=== PATIENT | female | born 1970 | race American Indian/Alaskan Native ===

== ENCOUNTER 2017-02-03 16:20 | Emergency (ER) | payer SELFPAY ==
[2017-02-03 17:39] LABS: Bilirubin,Urine NEG (Negative); Blood,Urine MOD (Negative); Ketones,Urine TR mg/dL (Negative); Leukocyte Esterase,Urine MOD (Negative); Mucus,Urine FEW /HPF; Nitrite,Urine NEG (Negative); Protein,Urine <15 mg/dL mg/dL (Negative); Urobilinogen,Urine < 2.0 mg/dL (<2.0)
--- NOTE | 2017-02-03 20:22 | Emergency Department Report ---
ED Female HPI - General Chief complaint: Urogenital-Female Stated complaint: POSS UTI Source: patient Mode of arrival: Ambulatory Limitations: No Limitations - History of Present Illness Initial comments: 6-year-old female comes in with complaint of urinary urgency with urination and urinary frequency and dysuria since Thursday. Patient reports that she has noticed some blood in the urine. She denies any fever or chills she had nausea a few days ago but none now. Taken no pain medication she has been drinking cranberry and water and taking egcy-pyo-dgyidbj cranberry pills she does not have a primary care provider. MD Complaint: dysuria, pelvic pain -: days(s) (3) Location: suprapubic Radiation: LLQ Severity scale (0 -10): 0 Consistency: intermittent Improves with: none Worsens with: urination Are you Now?: No Last Menstrual Period: 01/09/17 EDC: 10/16/17 Associated Symptoms: denies other symptoms - Related Data Sexually active: Yes Home Medications Medication Instructions Recorded Confirmed Last Taken ALBUTEROL Inhaler [Proair] 2 puff IH QID PRN 02/03/17 02/03/17 Unknown Previous Rx's Medication Instructions Recorded Last Taken Type Naproxen [Naprosyn TAB] 500 mg PO BID #20 tablet 02/03/17 Unknown Rx Nitrofurantoin [place]/M-Cryst 100 mg PO Q12HR #20 capsule 02/03/17 Unknown Rx [Macrobid CAP] Allergies Allergy/AdvReac Type Severity Reaction Status Date / Time bee venom (honey bee) Allergy Swelling Verified 02/03/17 16:54 ED Review of Systems ROS: Stated complaint: POSS UTI Other details as noted in HPI ED Past Medical Hx - Past Medical History Hx GERD: Yes Hx Psychiatric Treatment: Yes (ANXIETY) Hx Asthma: Yes - Surgical History Hx Breast Surgery: Yes (CYST REMOVED LEFT BREAST) Additional Surgical History: ECTOPIC X 2 ; "ONE TUBE TAKEN OUT" - Social History Smoking Status: Current Every Day Smoker Substance Use Type: None - Medications Home Medications: Home Medications Medication Instructions Recorded Confirmed Last Taken Type ALBUTEROL Inhaler [Proair] 2 puff IH QID PRN 02/03/17 02/03/17 Unknown History Naproxen [Naprosyn TAB] 500 mg PO BID #20 tablet 02/03/17 Unknown Rx Nitrofurantoin [place]/M-Cryst 100 mg PO Q12HR #20 capsule 02/03/17 Unknown Rx [Macrobid CAP] ED Physical Exam - General Limitations: No Limitations General appearance: alert, in no apparent distress - Head Head exam: Present: atraumatic, normocephalic - Eye Eye exam: Present: normal appearance, EOMI - GI/Abdominal GI/Abdominal exam: Present: soft, tenderness (right lower suprapubic tenderness and suprapubic tenderness), normal bowel sounds. Absent: distended - Extremities Exam Extremities exam: Present: normal inspection - Back Exam Back exam: Present: CVA tenderness (R) - Neurological Exam Neurological exam: Present: alert, oriented X3, normal gait - Psychiatric Psychiatric exam: Present: normal affect, normal mood - Skin Skin exam: Present: warm, dry, intact ED Course Vital Signs 02/03/17 16:58 Temperature 98.4 F Pulse Rate 91 H Respiratory 17 Rate Blood Pressure 102/64 O2 Sat by Pulse 100 Oximetry ED Medical Decision Making - Medical Decision Making Patient's been evaluated by this provider in fast track. Discussed with patient that we would discharge her on antibiotics. Discussed with patient that I will discharge her on pain medication. Patient needs to follow up with her primary care provider if symptoms persist but does not improve. Patient declined pain medicine to take now. She reports that she has not eaten all day. Critical care attestation.: If time is entered above; I have spent that time in minutes in the direct care of this critically ill patient, excluding procedure time. ED Disposition Clinical Impression: UTI (urinary tract infection) Qualifiers: Urinary tract infection type: site unspecified Hematuria presence: with hematuria Qualified Code(s): N39.0 - Urinary tract infection, site not specified ; R31.9 - Hematuria, unspecified Disposition: DISCHARGED TO HOME OR SELFCARE Is pt being admited?: No Does the pt Need Aspirin: No Condition: Stable Instructions: Urinary Tract Infection in Women (ED) Additional Instructions: Take antibiotics as prescribed. Use pain medication as prescribed when necessary. Follow-up if symptoms persist but does not improve. Prescriptions: Naproxen [Naprosyn TAB] 500 mg PO BID #20 tablet Nitrofurantoin [place]/M-Cryst [Macrobid CAP] 100 mg PO Q12HR #20 capsule Referrals: PRIMARY CARE, [Primary Care Provider] - 3-5 Days [facility] [Outside] - 3-5 Days Forms: Work/School Release Form(ED)
[2017-02-03 21:07] VITALS: BP 135/78
== END 2017-02-03 21:06 | disposition home or self-care (01) ==
LOC: ED 16:20
DX: N39.0 Urinary tract infection, site not specified (principal); R31.9 Hematuria, unspecified; K21.9 Gastro-esophageal reflux disease without esophagitis; F41.9 Anxiety disorder, unspecified; J45.909 Unspecified asthma, uncomplicated; F17.200 Nicotine dependence, unspecified, uncomplicated; Z91.030 Bee allergy status
CPT/HCPCS: 81001; 81025; 99282

== ENCOUNTER 2017-12-03 04:13 | Emergency (ER) | payer SELFPAY ==
[2017-12-03 04:46] VITALS: BP 110/38
[2017-12-03 06:13] LABS: Basophils % (Auto) 0.4 % (0.0-1.8); Eosinophils # (Auto) 0.1 K/mm3 (0.0-0.4); Eosinophils % (Auto) 1.5 % (0.0-4.3); Lymphocytes # (Auto) 2.3 K/mm3 (1.2-5.4); Lymphocytes % (Auto) 33.7 % (13.4-35.0); Mean Corpuscular HGB Conc 33 % (30-34); Mean Corpuscular Hemoglobin 32 pg (28-32); Mean Corpuscular Volume 97 fl (79-97); Monocytes # (Auto) 0.5 K/mm3 (0.0-0.8); Monocytes % (Auto) 7.8 % (0.0-7.3); Platelet Count 163 K/mm3 (140-440); Red Blood Count 4.02 M/mm3 (3.65-5.03); Red Cell Distribution Width 12.5 % (13.2-15.2)
[2017-12-03 06:25] LABS: Alanine Aminotransferase 6 units/L (7-56); Albumin 3.9 g/dL (3.9-5); BUN/Creatinine Ratio 12; Blood Urea Nitrogen 12 mg/dL (7-17); Calcium 8.8 mg/dL (8.4-10.2); Hemolysis Index 9; Lipase 21 units/L (13-60)
[2017-12-03 07:47] LABS: Bilirubin,Urine NEG (Negative); Blood,Urine MOD (Negative); Color,Urine Yellow (Yellow); Mucus,Urine 1+ /HPF; Nitrite,Urine NEG (Negative); Protein,Urine <15 mg/dL mg/dL (Negative); Urobilinogen,Urine < 2.0 mg/dL (<2.0)
== END 2017-12-03 11:26 ==
LOC: ED 04:13
DX: R10.9 Unspecified abdominal pain (principal); Z53.21 Procedure and treatment not carried out due to patient leaving prior to being seen by health care provider
CPT/HCPCS: 36415; 80053; 81001; 83690; 84703; 85025

== ENCOUNTER 2018-05-14 22:34 | Emergency (ER) | payer SELFPAY ==
[2018-05-14] MEDS ORDERED: ASPIRIN PO ONE (23:29)
[2018-05-15 00:29] LABS: Basophils % (Auto) 0.3 % (0.0-1.8); Eosinophils # (Auto) 0.2 K/mm3 (0.0-0.4); Eosinophils % (Auto) 1.7 % (0.0-4.3); Hematocrit 39.4 % (30.3-42.9); Hemoglobin 13.6 gm/dl (10.1-14.3); Lymphocytes # (Auto) 3.2 K/mm3 (1.2-5.4); Lymphocytes % (Auto) 31.8 % (13.4-35.0); Mean Corpuscular HGB Conc 35 % (30-34); Mean Corpuscular Hemoglobin 34 pg (28-32); Mean Corpuscular Volume 97 fl (79-97); Monocytes # (Auto) 0.7 K/mm3 (0.0-0.8); Monocytes % (Auto) 7.3 % (0.0-7.3); Platelet Count 201 K/mm3 (140-440); Red Blood Count 4.07 M/mm3 (3.65-5.03); Red Cell Distribution Width 13.2 % (13.2-15.2)
[2018-05-15 00:46] LABS: BUN/Creatinine Ratio 16; Blood Urea Nitrogen 16 mg/dL (7-17); Calcium 9.5 mg/dL (8.4-10.2); Hemolysis Index 2
--- NOTE | 2018-05-15 06:24 | Emergency Department Report ---
ED Chest Pain HPI - General Chief Complaint: Chest Pain Stated Complaint: EARACHE, HEADACHE Source: patient Mode of arrival: Ambulatory Limitations: No Limitations - Related Data Home Medications Medication Instructions Recorded Confirmed Last Taken ALBUTEROL Inhaler [Proair] 2 puff IH QID PRN 02/03/17 02/03/17 Unknown Previous Rx's Medication Instructions Recorded Last Taken Type Naproxen [Naprosyn TAB] 500 mg PO BID #20 tablet 02/03/17 Unknown Rx Nitrofurantoin [place]/M-Cryst 100 mg PO Q12HR #20 capsule 02/03/17 Unknown Rx [Macrobid CAP] Allergies Allergy/AdvReac Type Severity Reaction Status Date / Time venom-honey bee Allergy Swelling Verified 02/03/17 16:54 [bee venom (honey bee)] ED Review of Systems ROS: Stated complaint: EARACHE, HEADACHE Other details as noted in HPI ED Past Medical Hx - Past Medical History Hx GERD: Yes Hx Psychiatric Treatment: Yes (ANXIETY) Hx Asthma: Yes - Surgical History Hx Breast Surgery: Yes (CYST REMOVED LEFT BREAST) Additional Surgical History: ECTOPIC X 2 ; "ONE TUBE TAKEN OUT" - Social History Smoking Status: Current Every Day Smoker Substance Use Type: None - Medications Home Medications: Home Medications Medication Instructions Recorded Confirmed Last Taken Type ALBUTEROL Inhaler [Proair] 2 puff IH QID PRN 02/03/17 02/03/17 Unknown History Naproxen [Naprosyn TAB] 500 mg PO BID #20 tablet 02/03/17 Unknown Rx Nitrofurantoin [place]/M-Cryst 100 mg PO Q12HR #20 capsule 02/03/17 Unknown Rx [Macrobid CAP] ED Physical Exam - General Limitations: No Limitations ED Course Vital Signs 05/14/18 23:18 Temperature 98.8 F Pulse Rate 74 Respiratory 16 Rate Blood Pressure 109/55 O2 Sat by Pulse 98 Oximetry ED Medical Decision Making - Lab Data Result diagrams: 05/15/18 00:03 05/15/18 00:03 Critical care attestation.: If time is entered above; I have spent that time in minutes in the direct care of this critically ill patient, excluding procedure time. ED Disposition Condition: Stable Referrals: PRIMARY CARE, [Primary Care Provider] - 3-5 Days
[2018-05-15] MEDS ORDERED: ASPIRIN ONE (06:34)
--- NOTE | 2018-05-15 06:40 | Emergency Department Report ---
Blank Doc - Documentation Documentation: This is a 47-year-old patient presented to the emergency room reporting that she is having chest pain with radiation of pain down to her arm that started a week ago. She is also complaining of headache. No medication taken for pain. She is here to be evaluated. She denies any medical problems. Patient said at first she thought it was gas and she drank some Sprite and got some relief but she said it still persists . She denies any shortness of breath. Denies any cough or fever. Denies any history of blood clots or any recent long distance travel by airplane or car. Denies any recent convalescent. Denies any blurred vision. Headache is located left side of head. Denies any dizziness, nausea or vomiting. PE: 47-year-old female patient well-nourished well-developed and nontoxic in appearance. Mini-neurological exam-she is at 15, alert and oriented 3. No facial droop. Speech is clear and fluid. Normal gait. CV: S1, S2. Regular rate rhythm negative murmur Respiratory: Clear to auscultate bilaterally, no adventitious sound. Extremity: No clubbing, cyanosis or edema. A/P Chest pain with radiation of pain to upper extremity, headache. EKG normal sinus rhythm at 61. Patient had EKG now and at 10:30 AM. Troponin normal, patient's troponin stat and 10:30 AM. CBC and chemistries stable. VSS ,afeb Patient's of aspirin, O2 and placed on traffic monitor specialist. I spoke with Dr. de luna who is the attending physician and he wants patient to be in the main side. I discuss this with patient and she voiced understanding. Patient taken to the main side to be evaluated.
--- NOTE | 2018-05-15 07:47 | Emergency Department Report ---
ED Chest Pain HPI - General Chief Complaint: Chest Pain Stated Complaint: EARACHE, HEADACHE Time Seen by Provider: 05/15/18 06:08 Source: patient Mode of arrival: Ambulatory Limitations: No Limitations - History of Present Illness Initial Comments: 47-year-old female presents to the emergency department with a complaint of a one-week history of some intermittent left-sided chest pain, left -sided back pain and left-sided headache. Currently the patient has no complaints as the symptoms have resolved but she does say that they come and go. The patient is a tobacco smoker but denies any illicit drug use. She otherwise denies any past medical history. She moved to [place] from [place] about one year ago and does not yet have a primary care physician here. She has not taken anything for her symptoms prior to presentation. She says that the chest and back pain are reproducible and/or worsen with certain movements of her left arm and torso. Earlier, the patient was having the back pain, and she thought she had some gas. She drank some Sprite, burped, and 20 minutes later the symptoms resolved. She denies any family history of early cardiac disease or events. With the headache, she denies any vision change, slurred speech or any neurological deficits. - Related Data Home Medications Medication Instructions Recorded Confirmed Last Taken ALBUTEROL Inhaler [Proair] 2 puff IH QID PRN 02/03/17 02/03/17 Unknown Previous Rx's Medication Instructions Recorded Last Taken Type Naproxen [Naprosyn TAB] 500 mg PO BID #20 tablet 02/03/17 Unknown Rx Nitrofurantoin [place]/M-Cryst 100 mg PO Q12HR #20 capsule 02/03/17 Unknown Rx [Macrobid CAP] Allergies Allergy/AdvReac Type Severity Reaction Status Date / Time venom-honey bee Allergy Swelling Verified 02/03/17 16:54 [bee venom (honey bee)] Heart Score - HEART Score History: Slightly suspicious EKG: Normal Age: 45-65 Risk factors: 1-2 risk factors Troponin: < normal limit HEART Score: 2 ED Review of Systems ROS: Stated complaint: EARACHE, HEADACHE Other details as noted in HPI Comment: All other systems reviewed and negative Constitutional: denies: chills, fever Eyes: denies: eye pain, eye discharge, vision change ENT: denies: ear pain, throat pain Respiratory: denies: cough, shortness of breath, wheezing Cardiovascular: chest pain. denies: palpitations Gastrointestinal: denies: abdominal pain, nausea, diarrhea Genitourinary: denies: urgency, dysuria, discharge Musculoskeletal: back pain. denies: arthralgia Skin: denies: rash, lesions Neurological: headache. denies: numbness ED Past Medical Hx - Past Medical History Hx GERD: Yes Hx Psychiatric Treatment: Yes (ANXIETY) Hx Asthma: Yes - Surgical History Hx Breast Surgery: Yes (CYST REMOVED LEFT BREAST) Additional Surgical History: ECTOPIC X 2 ; "ONE TUBE TAKEN OUT" - Social History Smoking Status: Current Every Day Smoker Substance Use Type: None - Medications Home Medications: Home Medications Medication Instructions Recorded Confirmed Last Taken Type ALBUTEROL Inhaler [Proair] 2 puff IH QID PRN 02/03/17 02/03/17 Unknown History Naproxen [Naprosyn TAB] 500 mg PO BID #20 tablet 02/03/17 Unknown Rx Nitrofurantoin [place]/M-Cryst 100 mg PO Q12HR #20 capsule 02/03/17 Unknown Rx [Macrobid CAP] ED Physical Exam - General Limitations: No Limitations ED Course Vital Signs 05/14/18 05/15/18 05/15/18 23:18 06:17 06:58 Temperature 98.8 F 97.6 F Pulse Rate 74 62 Respiratory 16 16 Rate Blood Pressure 109/55 Blood Pressure 73/36 [Right] O2 Sat by Pulse 98 95 98 Oximetry 05/15/18 05/15/18 07:11 07:24 Temperature Pulse Rate 56 L 56 L Respiratory Rate Blood Pressure Blood Pressure 70/39 [Right] O2 Sat by Pulse Oximetry NAVID score - Navid Score Age > 65: (0) No Aspirin use within the Past 7 Days: (0) No 3 or more CAD Risk Factors: (0) No 2 or more Angina events in past 24 hrs: (1) Yes (If considered angina) Known CAD with more than 50% Stenosis: (0) No Elevated Cardiac Markers: (0) No ST Deviation Greater than 0.5mm: (0) No NAVID Score: 1 ED Medical Decision Making - Lab Data Result diagrams: 05/15/18 00:03 05/15/18 00:03 - EKG Data -: EKG Interpreted by Me EKG shows normal: sinus rhythm, axis, intervals, QRS complexes, ST-T waves Rate: bradycardia (56 bpm) - EKG Data When compared to previous EKG there are: previous EKG unavailable Interpretation: normal EKG Critical care attestation.: If time is entered above; I have spent that time in minutes in the direct care of this critically ill patient, excluding procedure time. ED Disposition Clinical Impression: Intermittent chest pain Episodic headache Qualifiers: Headache type: tension-type Intractability: not intractable Qualified Code(s): G44.219 - Episodic tension-type headache, not intractable Disposition: DC-01 TO HOME OR SELFCARE Is pt being admited?: No Condition: Stable Instructions: Chest Pain (ED), Costochondritis (ED), Acute Headache (ED) Additional Instructions: Please follow up with a primary care physician in the next few days. I have given her a referral for a local gas controller, Dr. Chavez, to follow up regarding your intermittent chest pains. Return to the emergency department with any worsening of your symptoms of any acute distress. Referrals: PRIMARY MD FRANK [Primary Care Provider] - 3-5 Days JOHN GRIJALVA MD [Staff Physician] - 3-5 Days CHRISTIANO CHAVEZ MD [Staff Physician] - 3-5 Days [facility] [Outside] - 3-5 Days Time of Disposition: 08:20
--- NOTE | 2018-05-15 07:59 | XRay Report ---
FINAL REPORT EXAM: XR CHEST 1V AP HISTORY: CP TECHNIQUE: AP portable view(s) of the chest obtained. PRIORS: None. FINDINGS: No mediastinal shift. Cardiac silhouette is not enlarged. No pneumothorax, effusion, or focal pulmonary opacity identified. No acute skeletal findings. IMPRESSION: No acute pulmonary finding identified.
[2018-05-15] MEDS ORDERED: NACL 0.9% 1000 ML 1,000 ML IV ONE ×2 (09:21→11:00)
[2018-05-15 12:13] VITALS: BP 94/54
== END 2018-05-15 13:04 | disposition home or self-care (01) ==
LOC: ED 22:34
DX: R07.89 Other chest pain (principal); G44.219 Episodic tension-type headache, not intractable; K21.9 Gastro-esophageal reflux disease without esophagitis; J45.909 Unspecified asthma, uncomplicated; F17.200 Nicotine dependence, unspecified, uncomplicated; Z91.030 Bee allergy status
CPT/HCPCS: 36415; 71045; 80048; 84484; 84703; 85025; 93005; 93010; 99284; J7030

== ENCOUNTER 2018-12-31 23:04 | Emergency (ER) | payer BC ==
[2018-12-31] MEDS ORDERED: TYLENOL PO ONE (23:37)
[2018-12-31] MEDS ORDERED: TYLENOL ONE (23:38)
[2019-01-01] MEDS ORDERED: IBUPROFEN PO ONE (05:02)
--- NOTE | 2019-01-01 05:05 | Emergency Department Report ---
ED Extremity Problem HPI - General Chief complaint: Extremity Injury, Lower Stated complaint: L LEG EDEMA Time Seen by Provider: 01/01/19 05:00 Source: patient Mode of arrival: Ambulatory Limitations: No Limitations - History of Present Illness Initial comments: 48 -year-old -[place] female presents to the emergency room for left knee swelling 1-1/2 weeks. Patient states that her job entails her walking up and down steps. Patient also endorsed that she had slipped on her carpet after it was being cleaned. Patient denies any fever or chills. Patient reports that the pain and swelling started in the back of her knee and now it has gone to her knee and lower leg swelling. Patient has a past medical history of anxiety. MD Complaint: extremity swelling, joint swelling, joint paint -: week(s) (1.5) Location: left, knee History of Same: No -: Yes arthralgia Severity scale (0 -10): 10 Quality: aching, sharp Consistency: intermittent Improves with: medication (Tylenol that was given here in triage) Worsens with: weight bearing, other (bending) - Related Data Home Medications Medication Instructions Recorded Confirmed Last Taken ALBUTEROL Inhaler (OR & NICU) 2 puff IH QID PRN 02/03/17 02/03/17 Unknown [Proair] Previous Rx's Medication Instructions Recorded Last Taken Type Naproxen [Naprosyn TAB] 500 mg PO BID #20 tablet 02/03/17 Unknown Rx Nitrofurantoin [place]/M-Cryst 100 mg PO Q12HR #20 capsule 02/03/17 Unknown Rx [Macrobid CAP] Ibuprofen [Motrin 800 MG tab] 800 mg PO Q8HR PRN #15 tablet 01/01/19 Unknown Rx Allergies Allergy/AdvReac Type Severity Reaction Status Date / Time venom-honey bee Allergy Swelling Verified 02/03/17 16:54 [bee venom (honey bee)] ED Review of Systems ROS: Stated complaint: L LEG EDEMA Other details as noted in HPI Comment: All other systems reviewed and negative Musculoskeletal: joint swelling (left knee), arthralgia (left knee) ED Past Medical Hx - Past Medical History Previous Medical History?: Yes Hx GERD: Yes Hx Psychiatric Treatment: Yes (ANXIETY) Hx Asthma: Yes - Surgical History Past Surgical History?: Yes Hx Breast Surgery: Yes (CYST REMOVED LEFT BREAST) Additional Surgical History: ECTOPIC X 2 ; "ONE TUBE TAKEN OUT" - Social History Smoking Status: Current Every Day Smoker Substance Use Type: None - Medications Home Medications: Home Medications Medication Instructions Recorded Confirmed Last Taken Type ALBUTEROL Inhaler (OR & NICU) 2 puff IH QID PRN 02/03/17 02/03/17 Unknown History [Proair] Naproxen [Naprosyn TAB] 500 mg PO BID #20 tablet 02/03/17 Unknown Rx Nitrofurantoin [place]/M-Cryst 100 mg PO Q12HR #20 capsule 02/03/17 Unknown Rx [Macrobid CAP] Ibuprofen [Motrin 800 MG tab] 800 mg PO Q8HR PRN #15 tablet 01/01/19 Unknown Rx ED Physical Exam - General Limitations: No Limitations General appearance: alert, in no apparent distress - Head Head exam: Present: atraumatic, normocephalic - Eye Eye exam: Present: EOMI - ENT ENT exam: Present: mucous membranes moist - Neck Neck exam: Present: normal inspection - Respiratory Respiratory exam: Present: normal lung sounds bilaterally. Absent: respiratory distress - Cardiovascular Cardiovascular Exam: Present: regular rate, normal rhythm. Absent: systolic murmur, diastolic murmur, rubs, gallop ED Course Vital Signs 12/31/18 12/31/18 12/31/18 23:11 23:30 23:38 Temperature 98.2 F 98.2 F Pulse Rate 73 73 Respiratory 18 18 18 Rate Blood Pressure 113/46 113/46 O2 Sat by Pulse 98 98 Oximetry ED Medical Decision Making - Radiology Data Radiology results: report reviewed Patient: NAYANA SHIPMAN MR#: [id number] : 1970 Acct:[id number] Age/Sex: 48 / F ADM Date: 12/31/18 Loc: ED Attending Dr: Ordering Physician: LADAN HERNANDEZ Date of Service: 01/01/19 Procedure(s): XR knee 3V LT Accession Number(s): [id number] cc: LADAN HERNANDEZ Fluoro Time In Minutes: PROCEDURE: XR KNEE 3V LT TECHNIQUE: Left knee radiograph, 3 views HISTORY: knee pain and swelling COMPARISONS: None . FINDINGS: Fracture (s) and/or Dislocation(s): None . Joint space(s): Normal . Soft tissues: There is a very small suprapatellar joint effusion. . Bone mineralization: Normal . Foreign bodies: None . IMPRESSION: Small suprapatellar joint effusion. No evidence of fracture. . This document is electronically signed by Yajaira Mackey MD., January 01 2019 05:26:01 AM ET Transcribed By: RB Dictated By: YAJAIRA MACKEY MD Electronically Authenticated By: YAJAIRA MACKEY MD Signed Date/Time: 01/01/19554 DD/ 0 TD/TT: 01/01/19520 - Medical Decision Making Patient has been evaluated by this provider in fast track. Patient was given Tylenol in triage which she reports helped some and patient was given ibuprofen and a ACC which she reports has helped. Discussed patient x-ray of her left knee shows a very small suprapatellar effusion Discussed patient to elevate ice and use compression and to rest her knee. Patient verbalized understanding Critical care attestation.: If time is entered above; I have spent that time in minutes in the direct care of this critically ill patient, excluding procedure time. ED Disposition Clinical Impression: Knee effusion, left Disposition: DC-01 TO HOME OR SELFCARE Is pt being admited?: No Does the pt Need Aspirin: No Condition: Stable Instructions: Knee Effusion (ED) Additional Instructions: Please take pain medication as needed. Please wrap knee as shown. Please elevate and apply ice if it gets worse please follow up with orthopedic I have listed their information below for your convenience. Prescriptions: Ibuprofen [Motrin 800 MG tab] 800 mg PO Q8HR PRN #15 tablet PRN Reason: Pain , Severe (7-10) Referrals: MAKSIM CALLOWAY MD [Staff Physician] - 3-5 Days YAJAIRA NUÑEZ MD [Staff Physician] - 3-5 Days Forms: Work/School Release Form(ED)
--- NOTE | 2019-01-01 05:55 | XRay Report ---
PROCEDURE: XR KNEE 3V LT TECHNIQUE: Left knee radiograph, 3 views HISTORY: knee pain and swelling COMPARISONS: None . FINDINGS: Fracture (s) and/or Dislocation(s): None . Joint space(s): Normal . Soft tissues: There is a very small suprapatellar joint effusion. . Bone mineralization: Normal . Foreign bodies: None . IMPRESSION: Small suprapatellar joint effusion. No evidence of fracture. . This document is electronically signed by Donis Mackey MD., January 01 2019 05:26:01 AM ET
[2019-01-01 06:58] VITALS: BP 105/47
== END 2019-01-01 06:58 | disposition home or self-care (01) ==
LOC: ED 23:04
DX: M25.462 Effusion, left knee (principal); K21.9 Gastro-esophageal reflux disease without esophagitis; F41.9 Anxiety disorder, unspecified; J45.909 Unspecified asthma, uncomplicated; F17.200 Nicotine dependence, unspecified, uncomplicated; Z79.899 Other long term (current) drug therapy; Z91.030 Bee allergy status
CPT/HCPCS: 99283

== ENCOUNTER 2019-01-16 04:19 | Emergency (ER) | payer BC ==
[2019-01-16] MEDS ORDERED: ASPIRIN PO ONE (05:00)
[2019-01-16 05:31] LABS: Basophils % (Auto) 0.4 % (0.0-1.8); Eosinophils # (Auto) 0.1 K/mm3 (0.0-0.4); Eosinophils % (Auto) 1.4 % (0.0-4.3); Hematocrit 38.2 % (30.3-42.9); Hemoglobin 12.8 gm/dl (10.1-14.3); Lymphocytes # (Auto) 2.2 K/mm3 (1.2-5.4); Lymphocytes % (Auto) 29.8 % (13.4-35.0); Mean Corpuscular HGB Conc 34 % (30-34); Mean Corpuscular Volume 98 fl (79-97); Monocytes # (Auto) 0.5 K/mm3 (0.0-0.8); Monocytes % (Auto) 6.8 % (0.0-7.3); Platelet Count 187 K/mm3 (140-440); Red Blood Count 3.91 M/mm3 (3.65-5.03); Red Cell Distribution Width 13.3 % (13.2-15.2)
[2019-01-16 05:53] LABS: BUN/Creatinine Ratio 15; Blood Urea Nitrogen 15 mg/dL (7-17); Hemolysis Index 8
--- NOTE | 2019-01-16 06:32 | Emergency Department Report ---
ED General Adult HPI - General Chief complaint: Chest Pain Stated complaint: NAUSEA/STOMACH PAIN/CP Time Seen by Provider: 01/16/19 06:17 Source: patient Mode of arrival: Ambulatory Limitations: No Limitations - History of Present Illness Initial comments: The patient presents to the emergency department with chief complaint of nausea and weakness for the last week. Patient also complains of having chest pain on the left side since without radiation. Patient describes chest pain as continuous in nature and denies anything making it better or worse. Patient denies a history of diabetes, hyperlipidemia, hypertension. -: Gradual Location: chest Severity scale (0 -10): 7 Quality: dull Consistency: constant Improves with: none Worsens with: none Associated Symptoms: nausea/vomiting Treatments Prior to Arrival: none - Related Data Home Medications Medication Instructions Recorded Confirmed Last Taken ALBUTEROL Inhaler (OR & NICU) 2 puff IH QID PRN 02/03/17 02/03/17 Unknown [Proair] Previous Rx's Medication Instructions Recorded Last Taken Type Naproxen [Naprosyn TAB] 500 mg PO BID #20 tablet 02/03/[address] [facility]/M-Cryst 100 mg PO Q12HR #20 capsule 02/03/17 Unknown Rx [Macrobid CAP] Ibuprofen [Motrin 800 MG tab] 800 mg PO Q8HR PRN #15 tablet 01/01/19 Unknown Rx Ondansetron [Zofran Odt] 4 mg PO Q6HR PRN #20 tab.rapdis 01/16/19 Unknown Rx Promethazine [Phenergan TAB] 25 mg PO Q6HR PRN #20 tab 01/16/19 Unknown Rx Allergies Allergy/AdvReac Type Severity Reaction Status Date / Time venom-honey bee Allergy Swelling Verified 02/03/17 16:54 [bee venom (honey bee)] ED Review of Systems ROS: Stated complaint: NAUSEA/STOMACH PAIN/CP Other details as noted in HPI Comment: All other systems reviewed and negative Constitutional: denies: chills, fever Eyes: denies: eye pain, eye discharge, vision change ENT: denies: ear pain, throat pain Respiratory: denies: cough, shortness of breath, wheezing Cardiovascular: chest pain. denies: palpitations Endocrine: no symptoms reported Gastrointestinal: nausea. denies: abdominal pain, diarrhea Genitourinary: denies: urgency, dysuria, discharge Musculoskeletal: denies: back pain, joint swelling, arthralgia Skin: denies: rash, lesions Neurological: denies: headache, weakness, paresthesias Psychiatric: denies: anxiety, depression Hematological/Lymphatic: denies: easy bleeding, easy bruising ED Past Medical Hx - Past Medical History Hx GERD: Yes Hx Psychiatric Treatment: Yes (ANXIETY) Hx Asthma: Yes - Surgical History Hx Breast Surgery: Yes (CYST REMOVED LEFT BREAST) Additional Surgical History: ECTOPIC X 2 ; "ONE TUBE TAKEN OUT" - Social History Smoking Status: Current Every Day Smoker Substance Use Type: None - Medications Home Medications: Home Medications Medication Instructions Recorded Confirmed Last Taken Type ALBUTEROL Inhaler (OR & NICU) 2 puff IH QID PRN 02/03/17 02/03/17 Unknown History [Proair] Naproxen [Naprosyn TAB] 500 mg PO BID #20 tablet 02/03/[address] [facility]/M-Cryst 100 mg PO Q12HR #20 capsule 02/03/17 Unknown Rx [Macrobid CAP] Ibuprofen [Motrin 800 MG tab] 800 mg PO Q8HR PRN #15 tablet 01/01/19 Unknown Rx Ondansetron [Zofran Odt] 4 mg PO Q6HR PRN #20 tab.rapdis 01/16/19 Unknown Rx Promethazine [Phenergan TAB] 25 mg PO Q6HR PRN #20 tab 01/16/19 Unknown Rx ED Physical Exam - General Limitations: No Limitations General appearance: alert, in no apparent distress - Head Head exam: Present: atraumatic, normocephalic - Eye Eye exam: Present: normal appearance, PERRL, EOMI - ENT ENT exam: Present: mucous membranes dry - Neck Neck exam: Present: normal inspection - Respiratory Respiratory exam: Present: normal lung sounds bilaterally. Absent: respiratory distress, wheezes, rales, rhonchi - Cardiovascular Cardiovascular Exam: Present: regular rate, normal rhythm. Absent: systolic murmur, diastolic murmur, rubs, gallop - GI/Abdominal GI/Abdominal exam: Present: soft, normal bowel sounds. Absent: distended, tenderness - Extremities Exam Extremities exam: Present: normal inspection - Back Exam Back exam: Present: normal inspection - Neurological Exam Neurological exam: Present: alert, oriented X3, CN II-XII intact. Absent: motor sensory deficit - Psychiatric Psychiatric exam: Present: normal affect, normal mood - Skin Skin exam: Present: warm, dry, intact, normal color. Absent: rash ED Course Vital Signs 01/16/19 01/16/19 01/16/19 04:27 04:56 06:47 Temperature 98.1 F 98.1 F Pulse Rate 69 66 112 H Respiratory 18 18 Rate Blood Pressure 90/47 90/50 O2 Sat by Pulse 98 98 Oximetry 01/16/19 01/16/19 01/16/19 07:00 07:15 07:30 Temperature Pulse Rate 62 53 L 55 L Respiratory 13 15 16 Rate Blood Pressure 109/64 102/59 98/58 O2 Sat by Pulse 100 98 Oximetry 01/16/19 01/16/19 01/16/19 07:45 08:00 08:16 Temperature Pulse Rate 53 L 52 L Respiratory 15 12 Rate Blood Pressure 109/64 103/57 98/58 O2 Sat by Pulse 97 99 99 Oximetry 01/16/19 08:46 Temperature Pulse Rate 50 L Respiratory 13 Rate Blood Pressure 98/58 O2 Sat by Pulse 98 Oximetry ED Medical Decision Making - Lab Data Result diagrams: 01/16/19 05:09 01/16/19 05:09 Lab Results 01/16/19 01/16/19 01/16/19 Range/Units 05:09 05:09 05:09 WBC 7.4 (4.5-11.0) K/mm3 RBC 3.91 (3.65-5.03) M/mm3 Hgb 12.8 (10.1-14.3) gm/dl Hct 38.2 (30.3-42.9) % MCV 98 H (79-97) fl MCH 33 H (28-32) pg MCHC 34 (30-34) % RDW 13.3 (13.2-15.2) % Plt Count 187 (140-440) K/mm3 Lymph % (Auto) 29.8 (13.4-35.0) % [place] % (Auto) 6.8 (0.0-7.3) % Eos % (Auto) 1.4 (0.0-4.3) % Baso % (Auto) 0.4 (0.0-1.8) % Lymph # 2.2 (1.2-5.4) K/mm3 [place] # 0.5 (0.0-0.8) K/mm3 Eos # 0.1 (0.0-0.4) K/mm3 Baso # 0.0 (0.0-0.1) K/mm3 Seg Neutrophils % 61.6 (40.0-70.0) % Seg Neutrophils # 4.5 (1.8-7.7) K/mm3 Sodium 138 (137-145) mmol/L Potassium 3.6 (3.6-5.0) mmol/L Chloride 103.7 (98-107) mmol/L Carbon Dioxide 24 (22-30) mmol/L Anion Gap 14 mmol/L BUN 15 (7-17) mg/dL Creatinine 1.0 (0.7-1.2) mg/dL Estimated GFR > 60 ml/min BUN/Creatinine Ratio 15 % Glucose 101 H (65-100) mg/dL Calcium 9.0 (8.4-10.2) mg/dL Troponin T < 0.010 (0.00-0.029) ng/mL HCG, Qual Negative (Negative) 01/16/19 Range/Units 07:35 WBC (4.5-11.0) K/mm3 RBC (3.65-5.03) M/mm3 Hgb (10.1-14.3) gm/dl Hct (30.3-42.9) % MCV (79-97) fl MCH (28-32) pg MCHC (30-34) % RDW (13.2-15.2) % Plt Count (140-440) K/mm3 Lymph % (Auto) (13.4-35.0) % [place] % (Auto) (0.0-7.3) % Eos % (Auto) (0.0-4.3) % Baso % (Auto) (0.0-1.8) % Lymph # (1.2-5.4) K/mm3 [place] # (0.0-0.8) K/mm3 Eos # (0.0-0.4) K/mm3 Baso # (0.0-0.1) K/mm3 Seg Neutrophils % (40.0-70.0) % Seg Neutrophils # (1.8-7.7) K/mm3 Sodium (137-145) mmol/L Potassium (3.6-5.0) mmol/L Chloride (98-107) mmol/L Carbon Dioxide (22-30) mmol/L Anion Gap mmol/L BUN (7-17) mg/dL Creatinine (0.7-1.2) mg/dL Estimated GFR ml/min BUN/Creatinine Ratio % Glucose (65-100) mg/dL Calcium (8.4-10.2) mg/dL Troponin T < 0.010 (0.00-0.029) ng/mL HCG, Qual (Negative) - EKG Data -: EKG Interpreted by Me EKG shows normal: sinus rhythm Rate: bradycardia - Radiology Data Radiology results: report reviewed - Medical Decision Making Discussed results with patient Nausea improved Critical care attestation.: If time is entered above; I have spent that time in minutes in the direct care of this critically ill patient, excluding procedure time. ED Disposition Clinical Impression: Nonspecific chest pain, Nausea & vomiting Disposition: DC-01 TO HOME OR SELFCARE Is pt being admited?: No Does the pt Need Aspirin: No Condition: Stable Instructions: Noncardiac Chest Pain (ED), Chest Pain (ED), Acute Nausea and Vomiting (ED) Additional Instructions: return if worse Referrals: STEPHANY CONDON MD [Primary Care Provider] - 3-5 Days Time of Disposition: 09:57
--- NOTE | 2019-01-16 06:49 | XRay Report ---
PROCEDURE: XR CHEST 1V AP TECHNIQUE: A portable upright view of the chest was obtained. HISTORY: Chest Pain COMPARISONS: 05/15/2018 FINDINGS: The heart size and mediastinum appear normal. The lungs are clear. Pleural fluid is not seen. The bon es and soft tissues appear normal. IMPRESSION: Normal chest.. This document is electronically signed by Donis Mackey MD., January 16 2019 06:47:34 AM ET
[2019-01-16 10:18] VITALS: BP 103/68
== END 2019-01-16 10:18 | disposition home or self-care (01) ==
LOC: ED 04:19
DX: R07.89 Other chest pain (principal); R11.2 Nausea with vomiting, unspecified; R53.1 Weakness; K21.9 Gastro-esophageal reflux disease without esophagitis; F41.9 Anxiety disorder, unspecified; J45.909 Unspecified asthma, uncomplicated; F17.200 Nicotine dependence, unspecified, uncomplicated; Z79.899 Other long term (current) drug therapy; Z91.030 Bee allergy status
CPT/HCPCS: 36415; 71045; 80048; 84484; 84703; 85025; 93005; 93010

== ENCOUNTER 2019-11-18 10:34 | Outpatient (CLI) | payer BC ==
[2019-11-18 12:52] LABS: Basophils % (Auto) 0.4 % (0.0-1.8); Eosinophils # (Auto) 0.1 K/mm3 (0.0-0.4); Eosinophils % (Auto) 1.3 % (0.0-4.3); Hemoglobin 12.4 gm/dl (10.1-14.3); Lymphocytes # (Auto) 1.6 K/mm3 (1.2-5.4); Lymphocytes % (Auto) 34.1 % (13.4-35.0); Mean Corpuscular HGB Conc 33 % (30-34); Mean Corpuscular Volume 98 fl (79-97); Monocytes # (Auto) 0.4 K/mm3 (0.0-0.8); Monocytes % (Auto) 8.1 % (0.0-7.3); Platelet Count 176 K/mm3 (140-440); Red Blood Count 3.89 M/mm3 (3.65-5.03); Red Cell Distribution Width 12.9 % (13.2-15.2)
[2019-11-18 13:15] LABS: Bilirubin,Urine NEG (Negative); Blood,Urine MOD (Negative); Color,Urine Yellow (Yellow); Mucus,Urine FEW /HPF; Protein,Urine <15 mg/dL mg/dL (Negative); Urobilinogen,Urine < 2.0 mg/dL (<2.0)
[2019-11-18 13:26] LABS: Alanine Aminotransferase 6 units/L (7-56); Albumin 4.2 g/dL (3.9-5); BUN/Creatinine Ratio 10; Blood Urea Nitrogen 10 mg/dL (7-17); Calcium 9.3 mg/dL (8.4-10.2); Chol/HDL Ratio 2.21 %; HDL Cholesterol 57 mg/dL (40-59); Hemolysis Index 6; LDL Cholesterol,Direct 66 mg/dL (50-130)
== END 2019-11-18 10:35 | disposition home or self-care (01) ==
LOC: LAB 10:34
PROVIDERS: ATTEND Internal Medicine
DX: Z00.00 Encounter for general adult medical examination without abnormal findings (principal); Z13.21 Encounter for screening for nutritional disorder; Z13.1 Encounter for screening for diabetes mellitus; Z13.220 Encounter for screening for lipoid disorders; Z13.29 Encounter for screening for other suspected endocrine disorder; N39.0 Urinary tract infection, site not specified
CPT/HCPCS: 36415; 80053; 80061; 81001; 82607; 83036; 84443; 85025

== ENCOUNTER 2020-09-04 07:34 | Outpatient (CLI) | payer BC ==
--- NOTE | 2020-09-04 09:02 | XRay Report ---
LEFT KNEE 3 VIEW(S) INDICATION / CLINICAL INFORMATION: LEFT KNEE PAIN COMPARISON: 01/01/2019 FINDINGS: BONES / JOINT(S): No acute fracture or subluxation. Degenerative osteoarthrosis with minimal narrowin g at the medial joint space. Small suprapatellar effusion not significantly changed when compared to 01/01/2019. SOFT TISSUES: No significant abnormality. ADDITIONAL FINDINGS: None. Signer Name: Donis Mckeon MD Signed: 09/04/2020 8:58 AM Workstation Name: [id number]
== END 2020-09-04 07:35 | disposition home or self-care (01) ==
LOC: XRAY 07:34
PROVIDERS: ATTEND Internal Medicine
DX: M17.12 Unilateral primary osteoarthritis, left knee (principal)